=== PATIENT | male | born 1995 | race Caucasian/White ===

== ENCOUNTER 2022-04-18 17:49 | Emergency (ER) | payer SELFPAY ==
[~2022-04-18] VITALS: Ht 175.3 cm; Wt 73.0 kg
[2022-04-19 06:10] VITALS: BP 117/64
== END 2022-04-19 06:12 | disposition home or self-care (01) ==
LOC: ER 17:49
DX: F15.10 Other stimulant abuse, uncomplicated (principal); Z76.0 Encounter for issue of repeat prescription; Z59.00 Homelessness unspecified
CPT/HCPCS: 99283